=== PATIENT | female | born 1965 ===

== ENCOUNTER 2020-01-20 15:26 | Emergency (ER) | payer SELFPAY ==
[2020-01-20 16:15] LABS: #Basophils 0.1 thou/uL (0.0-0.2); #Eosinphils 0.1 thou/uL (0.0-0.7); #Lymphocytes 2.3 thou/uL (1.20-3.40); #Monocytes 0.5 thou/uL (0.11-0.59); #Neutrophils 6.8 thou/uL (1.40-6.50); %Basophils 0.8 % (0.0-1.0); %Lymphocytes 23.1 % (21.0-51.0); %Monocytes 5.3 % (0.0-10.0); %Neutrophils 69.8 % (42.0-75.0); Hemoglobin 13.7 g/dL (12.0-16.0); Mean Corpuscular Hemoglobin 31.3 pg (27.0-31.0); Mean Corpuscular Volume 97.8 fL (78.0-98.0); Mean Platelet Volume 7.3 fL (7.4-10.4); Platelet Count 330 thou/uL (130-400); RBC Distribution Width 11.2 % (11.5-14.5); Red Blood Cell (RBC) Count 4.39 mill/uL (4.20-5.40); White Blood Cell (WBC) Count 9.7 thou/uL (4.8-10.8)
[2020-01-20 16:22] LABS: BHCG - Serum Negative (NEGATIVE); INR-International Normal Ratio 0.9; PTT 28.1 sec (22.9-36.1); Pregs Control Background? CLEAR/WHITE (CLR/WHITE); Pregs Control Bar Appear? YES (CONTROL BAR); Prothrombin Time 12.3 sec (12.0-14.7)
[2020-01-20 16:35] LABS: ALT (SGPT) 11 U/L (8-55); AST (SGOT) 12 U/L (5-34); Alkaline Phosphatase 74 U/L (40-110); Anion Gap 13 mmol/L (10-20); BUN (Urea Nitrogen) 8 mg/dL (9.8-20.1); Bilirubin, Total 0.2 mg/dL (0.2-1.2); Calc. Creatinine Clearance 0 mL/min (70-130); Calcium 9.5 mg/dL (7.8-10.44); Carbon Dioxide 28 mmol/L (22-29); Chloride 104 mmol/L (98-107); Estimated GFR-MDRD 81; Globulin 3.2 g/dL (2.4-3.5); Glucose 115 mg/dL (70-105); Potassium 3.9 mmol/L (3.5-5.1); Protein, Total 7.2 g/dL (6.0-8.3); Sodium 141 mmol/L (136-145)
--- NOTE | 2020-01-20 18:28 | ULT ---
TRANSABDOMINAL AND TRANSVAGINAL PELVIC ULTRASOUND: 01/20/20 INDICATION: History of menorrhagia for the past two weeks with a history of D&C and IUD placement two weeks ago. COMPARISON: None. TECHNIQUE: Cruz scale, color Doppler with spectral Doppler images were obtained of the pelvis via transabdominal and transvaginal approach. FINDINGS: The uterus is enlarged and heterogeneous measuring 14.4 x 7.6 x 2.6 cm. There are multiple prominent intramural fibroids. The endometrial stripe measures 7 mm. There is echogenic linear focus within the lower uterine segment and upper cervix consistent with patient's known IUD. The right ovary was not seen. The left ovary measures 3.1 x 2 x 2.5 cm. There is normal flow to the left ovary. No free fluid is evident. IMPRESSION: 1. Prominent fibroid uterus. 2. Echogenic focus within the lower uterine segment upper cervix consistent with the patient's h istory of an IUD placement. Recommend correlation with clinical examination for expected placement of this particular brand of IUD. 3. Nonvisualization of the right ovary. POS: RHIANNA
== END 2020-01-20 17:25 | disposition home or self-care (01) ==
LOC: ERS 15:26
DX: N93.8 Other specified abnormal uterine and vaginal bleeding (principal)
CPT/HCPCS: 36415; 76856; 80053; 84703; 85025; 85610; 85730; 86850; 86900; 86901